=== PATIENT | male | born 1945 | race Caucasian/White ===

== ENCOUNTER 2024-07-04 12:16 | Emergency (ER) | payer MEDICARE, MEDICAID ==
[~2024-07-04] VITALS: Ht 160 cm; Wt 47.7 kg
[2024-07-04] MEDS ORDERED: HYDR-3686 PO (12:51)
[2024-07-04] MEDS ORDERED: LORA10TA7 PO (12:51)
[2024-07-04] MEDS ORDERED: SIMV-42 PO (12:51)
[2024-07-04] MEDS ORDERED: TRAZ-251 PO (12:51)
[2024-07-04] MEDS ORDERED: SYN0.088T PO (12:51)
[2024-07-04] MEDS ORDERED: AMLO1CAP77 PO (12:51)
[2024-07-04] MEDS ORDERED: MULT-31 PO (12:51)
[2024-07-04] MEDS ORDERED: MIRT-87 PO (12:51)
[2024-07-04] MEDS ORDERED: ACET-1008 PO (12:51)
[2024-07-04] MEDS ORDERED: FLO0.4C PO (12:51)
[2024-07-04] MEDS ORDERED: ASPI-1265 PO (12:51)
[2024-07-04] MEDS ORDERED: LOSA25TA41 PO (12:51)
[2024-07-04] MEDS ORDERED: CLOP75TA34 PO (12:51)
[2024-07-04 13:19] LABS: BASOPHILS % (AUTO) 0.5 % (0-1); EOSINOPHILS # (AUTO) 0.1 X10'3 (0-0.9); EOSINOPHILS % (AUTO) 1.4 % (0-6); HEMOGLOBIN 16.1 g/dl (14.0-17.9); LYMPHOCYTES # (AUTO) 2.2 X10'3 (1.1-4.8); LYMPHOCYTES % (AUTO) 29.5 % (21-51); MEAN CORPUSCULAR HEMOGLOBIN 31.8 PG (27.0-31.0); MEAN CORPUSCULAR HGB CONC 34.3 g/dL (33.0-36.5); MEAN CORPUSCULAR VOLUME 92.8 FL (78-98); MONOCYTES # (AUTO) 0.6 X10'3 (0-0.9); MONOCYTES % (AUTO) 7.8 % (2-12); NEUTROPHILS # (AUTO) 4.5 X10'3 (1.8-7.7); NEUTROPHILS % (AUTO) 60.8 % (42-75); PLATELET COUNT 288 X10'3 (140-440); RED BLOOD COUNT 5.06 X10'6 (4.70-6.10); RED CELL DISTRIBUTION WIDTH 13.6 % (11.5-14.5); WHITE BLOOD COUNT 7.4 X10'3 (4.5-11.0)
[2024-07-04 13:35] LABS: ALANINE AMINOTRANSFERASE 21 U/L (12-78); ALBUMIN 2.5 G/DL (3.4-5.0); ALBUMIN/GLOBULIN RATIO 0.6 (1.1-1.5); ALKALINE PHOSPHATASE 81 IU/L (46-116); ANION GAP 6 (8-16); ASPARTATE AMINO TRANSFERASE 26 U/L (10-37); BILIRUBIN,TOTAL 0.3 MG/DL (0.1-1.0); BLOOD UREA NITROGEN 31 MG/DL (7-18); BUN/CREATININE RATIO 23.8 (10.0-20.0); CALCIUM 10.4 MG/DL (8.5-10.1); CHLORIDE 103 MMOL/L (99-107); GLUCOSE 198 MG/DL (70-104); POTASSIUM 3.3 MMOL/L (3.5-5.1); PRO BRAIN NATRIURETIC PEPTIDE 93 PG/ML (0-450); SODIUM 136 MMOL/L (135-145); TOTAL CARBON DIOXIDE 27.2 MMOL/L (24-32); TOTAL PROTEIN 6.4 G/DL (6.4-8.2); eCRCL 32 ML/MIN; eGFR 53 ML/MIN
[2024-07-04 15:35] VITALS: BP 125/64; PULSE 71; RESP 12; TEMP 98; O2SAT 96
== END 2024-07-04 15:30 | disposition home or self-care (01) ==
LOC: ER 12:17
DX: S00.03XA Contusion of scalp, initial encounter (principal); Z88.8 Allergy status to other drugs, medicaments and biological substances; Z79.899 Other long term (current) drug therapy; W19.XXXA Unspecified fall, initial encounter; Y93.89 Activity, other specified; Y92.89 Other specified places as the place of occurrence of the external cause; Y99.8 Other external cause status
CPT/HCPCS: 36415; 70450; 71045; 80053; 82948; 83880; 84484; 85025; 93005; 99285